=== PATIENT | male | born 1975 | race Caucasian/White ===

== ENCOUNTER 2017-02-27 20:59 | Emergency (ER) | payer OTHER ==
[~2017-02-27 20:59] MED LIST: Cyclopentolate 1% 15 ML OPHT.BTL EACHEYE SCH; prednisoLONE ACET 1% 5 ML OPHT.BTL EACHEYE SCH
[2017-02-27 21:07] VITALS: BP 136/94; PULSE 71; RESP 18; TEMP 98.1; O2SAT 96
--- NOTE | 2017-02-27 21:30 | EDPHY ---
H & P Stated Complaint: HIT LEFT FACE WITH HIT SOFTBALL 30 MIN, NO LOC Time Seen by Provider: 02/27/17 21:23 HPI/ROS: CHIEF COMPLAINT: Softball to forehead HISTORY OF PRESENT ILLNESS: 41-year-old male no anticoagulant use arrives via private vehicle after a softball bounced and impacted his left eyebrow region. He is complaining of slightly blurry visions left eye as well as laceration left lateral eyebrow. No loss of consciousness. No amnesia PRIMARY CARE PROVIDER:Dr. Hemanth Bardales REVIEW OF SYSTEMS: A ten point review of systems was performed and is negative with the exception of the items mentioned in the HPI PAST MEDICAL/SURGICAL HISTORY: no anticoagulant use, no relevant medical/ surgical history SOCIAL HISTORY: denies alcohol use at time of incident PHYSICAL EXAM 1) GENERAL: Well-developed, well-nourished, alert and oriented. Appears to be in no acute distress. Answering questions appropriately. 2) HEAD: Normocephalic, left frontal hematoma, left lateral eyebrow 2.5 cm laceration 3) ENT: Nasopharynx, oropharynx, clear. No deformity or angulation of nose. No septal hematoma. No rhinorrhea. No oral trauma. Ears bilaterally with normal tympanic membranes. No hemotympanum. No fluid or blood in the external auditory canal. No raccoon eyes. No Villar sign. Teeth are normally aligned with no gross malocclusion, TMJ bilaterally nontender, facial bones nontender including the zygomatic arch, maxilla mandible. OCULAR EXAM: Visual Acuity: noted from Nurse's notes. Pupils:mydriatic left pupil Lids: no edema or swelling, upper and lower lids were everted and no foreign bodies were visualized, no areas of increased fluorescein uptake. Skin: no proptosis, no periorbital erythema or swelling, no vesicles, no pain with extraocular movements. Conjunctivae: not injected, no discharge, negative Rick test. Cornea: exam with fluorescein showsno areas of increased uptake Anterior chamber:normal, there is a hyphema of less than 5% 4) NECK: No cervical collar is on. Posterior cervical spine is nontender, no stepoff, no effusion. Full range of motion which does not elicit any midline cervical spine pain, no posterior midline tenderness, no step-off. 5) LUNGS: Clear to auscultation bilaterally, no wheezes, 6) HEART: Regular rate and rhythm, 7) ABDOMEN: No guarding, no rebound, no focal tenderness, no peritoneal signs, no signs of trauma, no ecchymosis 8) MUSCULOSKELETAL: Moving all extremities, no focal areas of tenderness, no obvious trauma. 9) BACK: No midline vertebral tenderness, no fluctuance, no step-off, no obvious trauma, no visual or palpable abnormality. 10) SKIN: Left eyebrow laceration DIFFERENTIAL DIAGNOSIS: Not necessarily in any particular order, my differential diagnosis includes, but is not limited to, concussion, skull fracture, intraparenchymal contusion, subarachnoid, subdural and epidural hematoma, hyphema, ruptured globe. The patient understands that this diagnosis is provisional and can never be 100% accurate. - Personal History Current Tetanus/Diphtheria Vaccine: Yes - Medical/Surgical History Hx Asthma: No Hx Chronic Respiratory Disease: No Hx Diabetes: No Hx Cardiac Disease: No Hx Renal Disease: No Hx Cirrhosis: No Hx Alcoholism: No Hx HIV/AIDS: No Hx Splenectomy or Spleen Trauma: No Other PMH: DENIES - Social History Smoking Status: Former smoker Constitutional: Initial Vital Signs Temperature (C) 36.7 C 02/27/17 21:05 Heart Rate 71 02/27/17 21:05 Respiratory Rate 18 02/27/17 21:05 Blood Pressure 136/94 H 02/27/17 21:05 O2 Sat (%) 96 02/27/17 21:05 O2 Delivery Mode Room Air Allergies/Adverse Reactions: No Known Allergies Allergy (Unverified 02/27/17 21:04) Home Medications: Medication Instructions Recorded NO HOME MEDS 12/02/09 Cyclopentolate 1% [CYCLOGYL 1% 1 drops EACHEYE BID #1 opht.btl 02/27/17 (RX)] prednisoLONE ACET 1% [Pred Forte 1 drops OP QID #1 opht.btl 02/27/17 1% (*)] Medical Decision Making - Diagnostics Imaging Results: Imaging Impressions Head CT 02/27/17 21:29 Impression: Negative noncontrast CT of the brain. Results called to. Arthur Jamil PA-C at 10:00 PM at the time of the interpretation. Procedures: Procedure: Laceration repair. I explained the indications, risks and benefits for both laceration repair and anesthetic administration. Verbal consent was obtained from the patient . The laceration on the left lateral eyebrow was anesthetized using 0.5% bupivicaine with epinephrine . After anesthetic administered the patient was observed for a period of time and had no apparent adverse effects. The wound was cleaned, prepped, draped in normal sterile fashion and explored to its base. No foreign body seen, no foreign bodies palpated. There were no deep structures involved. The wound was repaired with running suture of 6 0 Prolene. The wound repair was simple. The procedure was performed by myself. Patient has been informed that scarring will occur, although efforts have been made to minimize this. ED Course/Re-evaluation: 9:[address] ordered in this patient for trauma for the following indication : severe headache 10:50 p.m.: Discussed the negative head CT imaging results with the patient. Discussed his clinical exam findings, possible traumatic mydriasis left eye with a less than 5% hyphema in same eye. Will consult with Ophthalmology. Discused with Dr Ballesteros in ER. 11:00 p.m.: Phone consultation with on-call ophthalmology Dr. Babar Elizabeth who recommended starting the patient on cyclopentolate 1% twice daily, Pred-Forte 4 times daily and without see the patient in the office tomorrow afternoon. - Data Points Medications Given: Discontinued Medications Fluorescein Sodium (Awrdo-K-Lpsyu) 1 mg OP EDNOW ONE Stop: 02/27/17 22:25 Last Admin: 02/27/17 22:53 Dose: 1 mg Proparacaine HCl (Alcaine 0.5%) 1 drops OP EDNOW ONE Stop: 02/27/17 22:25 Last Admin: 02/27/17 22:53 Dose: 2 drops Departure - Departure Disposition: Home, Routine, Self-Care Clinical Impression: Traumatic left mydriasis Laceration of left eyebrow Qualifiers: Encounter type: initial encounter Qualified Code(s): S01.112A - Laceration without foreign body of left eyelid and periocular area, initial encounter Blunt head injury Qualifiers: Encounter type: initial encounter Qualified Code(s): S09.8XXA - Other specified injuries of head, initial encounter Condition: Good Instructions: Head Injury (ED), Laceration (ED), Care For Your Stitches (ED) Additional Instructions: Return to the ER in 5 days for suture removal. Follow up with kitman tomorrow. Referrals: Babar Elizabeth MD [Medical Doctor] - 02/28/17 12:00 pm (Call Dr. Elizabeth office in the morning. He would like to see you in the afternoon tomorrow) Return, to the ER in 5 days for suture removal [Other] - As per Instructions Prescriptions: Cyclopentolate 1% [CYCLOGYL 1% (RX)] 1 drops EACHEYE BID #1 opht.btl prednisoLONE ACET 1% [Pred Forte 1% (*)] 1 drops OP QID #1 opht.btl
[2017-02-27] MEDS ORDERED: PROPARACAINE 0.5% 15 ML OPHT DROP OP ONE (22:24)
[2017-02-27] MEDS ORDERED: FLUORESCEIN SODIUM 1 MG STRIP OP ONE (22:24)
== END 2017-02-27 23:49 | disposition home or self-care (01) ==
PROC: 08QPXZZ Repair Left Upper Eyelid, External Approach (ICD-10-PCS; principal; 2017-02-27)
DX: S01.112A Laceration without foreign body of left eyelid and periocular area, initial encounter (principal); H57.04 Mydriasis; Z87.891 Personal history of nicotine dependence; W21.07XA Struck by softball, initial encounter; Y99.8 Other external cause status; Y93.64 Activity, baseball